=== PATIENT | female | born 1980 | race Asian ===

== ENCOUNTER 2018-06-18 09:51 | Day surgery (SDC) | payer MEDICAID, OTHER ==
[~2018-06-18] VITALS: Ht 162.6 cm; Wt 59.8 kg
[2018-06-18] MEDS ORDERED: LIDOCAINE-MPF 1%, 2ML INFIL ONE (10:30)
[2018-06-18] MEDS ORDERED: LACTATED RINGERS 1,000 ML IV SCH (10:30)
[2018-06-18] MEDS ORDERED: MULT-658 PO (10:32)
[2018-06-18 10:37] VITALS: BP 116/79
[2018-06-18 10:39] LABS: HCG UR SG 1.013 (1.003-1.030)
[2018-06-18] MEDS ORDERED: PROPOFOL 10 MG/ML, 50ML ONE (12:59)
[2018-06-18] MEDS ORDERED: PROPOFOL 10 MG/ML, 20ML ONE (12:59)
[2018-06-18] MEDS ORDERED: ONDANSETRON 2MG/ML, 2ML IV PRN (13:00)
[2018-06-18] MEDS ORDERED: MIDAZOLAM 1 MG/ML, 2ML IV PRN (13:00)
[2018-06-18] MEDS ORDERED: FENTANYL PF 100 MCG/2ML IV PRN (13:00)
[2018-06-18] MEDS ORDERED: MEPERIDINE/PF 25MG/0.5ML IVPush PRN (13:00)
[2018-06-18] MEDS ORDERED: MORPHINE SULFATE 4 MG/ML, 1ML IVPush PRN (13:00)
[2018-06-18] MEDS ORDERED: OXYcodone 5 MG/5 ML ORAL.SOL UDC PO PRN (13:00)
== END 2018-06-18 15:20 | disposition home or self-care (01) ==
LOC: OUT 09:51
PROVIDERS: ATTEND Internal Medicine Geriatric Medicine
DX: K86.89 Other specified diseases of pancreas (principal)
CPT/HCPCS: 43238; 81025; 88172; 88173; 88307; J2704; J7120; 88341; 88342; 88360